=== PATIENT | female | born 1960 | race African-American/Black ===

== ENCOUNTER 2017-05-15 21:31 | Emergency (ER) | payer MEDICAID, OTHER ==
[~2017-05-15] VITALS: Ht 167.6 cm; Wt 65.9 kg
[~2017-05-15 21:31] MED LIST: ALPR1TAB2 PO; AZIT250T6 PO; CARI350T PO; CLON0.1T PO; DIPH25CA83 PO; HYDR-523 PO; NORT50CA PO; OMEP40CA PO
[2017-05-16 01:55] VITALS: BP 142/77
== END 2017-05-16 02:21 | disposition home or self-care (01) ==
LOC: ER 22:31
DX: T42.4X5A Adverse effect of benzodiazepines, initial encounter (principal); F41.9 Anxiety disorder, unspecified; I10 Essential (primary) hypertension; F31.9 Bipolar disorder, unspecified; Y92.89 Other specified places as the place of occurrence of the external cause; F12.10 Cannabis abuse, uncomplicated; Z98.890 Other specified postprocedural states
CPT/HCPCS: 93005; 99283; Z7610

== ENCOUNTER 2017-06-21 21:19 | Emergency (ER) | payer MEDICAID ==
[~2017-06-21] VITALS: Ht 172.7 cm; Wt 60.0 kg
[2017-06-22 01:01] LABS: BASOPHILS % 0.6 % (0.0-2.0); EOSINOPHILS % 3.3 % (0.0-5.0); HEMATOCRIT. 40.8 % (36.0-48.0); LYMPHOCYTES % 44.9 % (20.0-50.0); MEAN CORPUSCULAR HEMOGLOBIN 31.7 pg (28.0-32.0); MEAN CORPUSCULAR VOLUME 92.5 fL (81.0-99.0); MEAN PLATELET VOLUME 8.1 fl (7.4-10.4); MONOCYTES % 7.4 % (2.0-8.0); NEUTROPHILS % 43.8 % (40.0-76.0); PLATELET 187 x1000/uL (130-400); RED BLOOD CELL COUNT 4.41 mill/uL (4.2-5.4); RED CELL DISTRIBUTION WIDTH 13.8 % (11.6-14.6)
[2017-06-22 01:07] LABS: CHLORIDE 105 mEq/L (98-107)
[2017-06-22 01:11] VITALS: BP 156/103
[2017-06-22 01:15] LABS: CARBON DIOXIDE 32 mEq/L (21-32); ETHANOL BLOOD < 10 mg/dL
[2017-06-22 01:23] LABS: CLARITY URINE CLOUDY (CLEAR); COLOR URINE YELLOW (YELLOW); GLUCOSE URINE NEGATIVE (NEGATIVE); KETONES URINE NEGATIVE (NEGATIVE); LEUKOCYTE ESTERASE URINE 1+ (NEGATIVE); NITRITE URINE NEGATIVE (NEGATIVE); OCCULT BLOOD URINE NEGATIVE (NEGATIVE); PH URINE 5.5 (4.5-8.0); PROTEIN URINE NEGATIVE (NEGATIVE); SPECIFIC GRAVITY URINE 1.026 (1.005-1.030); UROBILINOGEN URINE 0.2 E.U./dL (0.2-1.0)
[2017-06-22 01:51] LABS: *AMPHETAMINES SCREEN URINE NEGATIVE (NEGATIVE); *BARBITURATES SCREEN URINE NEGATIVE (NEGATIVE); *BENZODIAZEPINES SCREEN URINE NEGATIVE (NEGATIVE); *COCAINE SCREEN URINE NEGATIVE (NEGATIVE); CANNABINOID URINE SCREEN PRESUMTIVE POSITIVE (NEGATIVE); METHADONE URINE SCREEN NEGATIVE (NEGATIVE); OPIATES URINE SCREEN PRESUMTIVE POSITIVE (NEGATIVE); PHENCYCLIDINE URINE SCREEN NEGATIVE (NEGATIVE)
== END 2017-06-22 02:51 | disposition home or self-care (01) ==
LOC: ER 06-22 00:20
DX: F41.9 Anxiety disorder, unspecified (principal); N39.0 Urinary tract infection, site not specified; F12.10 Cannabis abuse, uncomplicated; R00.2 Palpitations; I11.9 Hypertensive heart disease without heart failure
CPT/HCPCS: 36415; 80053; 80305; 81001; 81025; 85025; 93005; 99285; G0482

== ENCOUNTER 2017-10-23 12:28 | Emergency (ER) | payer MEDICAID ==
[~2017-10-23] VITALS: Ht 172.7 cm; Wt 67.0 kg
[~2017-10-23 12:28] MED LIST changes: +AZIT250T12 PO; -AZIT250T6 PO
[2017-10-23 12:56] VITALS: BP 140/91
== END 2017-10-23 20:45 | disposition left against medical advice (07) ==
LOC: ER 13:04
DX: R07.9 Chest pain, unspecified (principal); R06.02 Shortness of breath; Z53.21 Procedure and treatment not carried out due to patient leaving prior to being seen by health care provider
CPT/HCPCS: 93005

== ENCOUNTER 2017-10-30 13:48 | Emergency (ER) | payer MEDICAID ==
[~2017-10-30] VITALS: Ht 162.6 cm; Wt 67.0 kg
[2017-10-30 13:54] VITALS: BP 156/103
== END 2017-10-30 18:58 | disposition left against medical advice (07) ==
LOC: ER 14:09
DX: R07.89 Other chest pain (principal); I10 Essential (primary) hypertension
CPT/HCPCS: 93005; 99283

== ENCOUNTER 2017-11-11 12:51 | Emergency (ER) | payer MEDICAID ==
[~2017-11-11] VITALS: Ht 167.6 cm; Wt 67.0 kg
[2017-11-11] MEDS ORDERED: IBUPROFEN 400MG TABLET PO ONE (15:30)
[2017-11-11 16:00] LABS: BASOPHILS % 0.8 % (0.0-2.0); EOSINOPHILS % 2.1 % (0.0-5.0); HEMATOCRIT. 42.4 % (36.0-48.0); HEMOGLOBIN. 14.3 g/dL (12.0-16.0); MEAN CORPUSCULAR HEMOGLOBIN 31.2 pg (28.0-32.0); MEAN CORPUSCULAR VOLUME 92.3 fL (81.0-99.0); MEAN PLATELET VOLUME 8.5 fl (7.4-10.4); NEUTROPHILS % 40.1 % (40.0-76.0); PLATELET 244 x1000/uL (130-400); RED CELL DISTRIBUTION WIDTH 13.3 % (11.6-14.6)
[2017-11-11 16:01] LABS: INR 1.1; PROTHROMBIN TIME 11.4 sec (9.4-11.6)
[2017-11-11 16:25] LABS: CARBON DIOXIDE 30 mEq/L (21-32); CHLORIDE 106 mEq/L (98-107); CREATINE KINASE 157 IU/L (26-192); TROPONIN I < 0.02 ng/mL (0.00-0.04)
[2017-11-11 17:18] VITALS: BP 134/76
== END 2017-11-11 17:21 | disposition home or self-care (01) ==
LOC: ER 13:49
DX: R07.89 Other chest pain (principal); H92.02 Otalgia, left ear; R05 Cough; J34.89 Other specified disorders of nose and nasal sinuses; F41.9 Anxiety disorder, unspecified; I10 Essential (primary) hypertension; F12.10 Cannabis abuse, uncomplicated
CPT/HCPCS: 36415; 71045; 80053; 82550; 83690; 84484; 85025; 85610; 93005; 99285; Z7610

== ENCOUNTER 2018-06-26 22:28 | Emergency (ER) | payer MEDICAID ==
[~2018-06-26] VITALS: Ht 167.6 cm; Wt 64.0 kg
[~2018-06-26 22:28] MED LIST changes: -CARI350T PO; +S350 PO
[2018-06-27 02:30] LABS: BASOPHILS % 0.6 % (0.0-2.0); EOSINOPHILS % 2.9 % (0.0-5.0); HEMATOCRIT. 46.3 % (36.0-48.0); HEMOGLOBIN. 15.9 g/dL (12.0-16.0); LYMPHOCYTES % 46.8 % (20.0-50.0); MEAN CORPUSCULAR VOLUME 92.8 fL (81.0-99.0); MEAN PLATELET VOLUME 10.2 fl (7.4-10.4); MONOCYTES % 5.8 % (2.0-8.0); NEUTROPHILS % 43.9 % (40.0-76.0); PLATELET 221 x1000/uL (130-400); RED BLOOD CELL COUNT 4.98 mill/uL (4.2-5.4); RED CELL DISTRIBUTION WIDTH 13.8 % (11.6-14.6)
[2018-06-27 02:34] LABS: CHLORIDE 103 mEq/L (98-107)
[2018-06-27] MEDS ORDERED: KETOROLAC 15MG/ML VIAL IV ONE (03:45)
[2018-06-27 04:11] LABS: CLARITY URINE CLOUDY (CLEAR); COLOR URINE YELLOW (YELLOW); KETONES URINE NEGATIVE (NEGATIVE); LEUKOCYTE ESTERASE URINE 3+ (NEGATIVE); NITRITE URINE NEGATIVE (NEGATIVE); OCCULT BLOOD URINE NEGATIVE (NEGATIVE); PROTEIN URINE NEGATIVE (NEGATIVE); SPECIFIC GRAVITY URINE 1.017 (1.005-1.030)
[2018-06-27 05:27] VITALS: BP 100/51
== END 2018-06-27 05:28 | disposition home or self-care (01) ==
LOC: ER 22:28
DX: R51 Headache (principal); M79.1 Myalgia; D72.829 Elevated white blood cell count, unspecified; F41.9 Anxiety disorder, unspecified; I10 Essential (primary) hypertension
CPT/HCPCS: 36415; 80053; 81003; 85025; 87077; 87086; 87186; 96374; 99284; J1885

== ENCOUNTER 2018-07-17 21:32 | Emergency (ER) | payer MEDICAID ==
[~2018-07-17] VITALS: Ht 167.6 cm; Wt 65.0 kg
[2018-07-17 21:39] VITALS: BP 159/94
== END 2018-07-18 06:05 | disposition left against medical advice (07) ==
LOC: ER 21:32
DX: Z53.21 Procedure and treatment not carried out due to patient leaving prior to being seen by health care provider (principal)
CPT/HCPCS: 93005; Z7610; A4315

== ENCOUNTER 2022-05-27 12:17 | Emergency (ER) | payer MEDICAID ==
[~2022-05-27] VITALS: Ht 167.6 cm; Wt 58.0 kg
[~2022-05-27 12:17] MED LIST changes: +CARI350T28 PO; -S350 PO
[2022-05-27] MEDS ORDERED: DEXAMETHASONE 10 MG/ML VIAL IM ONE (14:45)
[2022-05-27 16:21] VITALS: BP 126/89
== END 2022-05-27 16:23 | disposition home or self-care (01) ==
LOC: ER 12:20
DX: J02.9 Acute pharyngitis, unspecified (principal); I10 Essential (primary) hypertension; Z20.822 Contact with and (suspected) exposure to COVID-19
CPT/HCPCS: 87070; 87426; 87430; 96372; 99283; C9803; J1100

== ENCOUNTER 2022-06-10 14:42 | Emergency (ER) | payer MEDICAID ==
[~2022-06-10] VITALS: Ht 170.2 cm; Wt 64.0 kg
[2022-06-10 14:55] VITALS: BP 141/98
[2022-06-10] MEDS ORDERED: DICYCLOMINE 10 MG/5 ML ORAL SYR PO STA (15:34)
[2022-06-10] MEDS ORDERED: MAGNESIUM/ALUMINUM HYDROXIDE/SIMETHICONE 30ML UDC PO STA (15:34)
[2022-06-10] MEDS ORDERED: VISCOUS LIDOCAINE 2% 15 ML UDC PO STA (15:34)
[2022-06-10 17:55] LABS: BASOPHILS % 0.7 % (0.0-2.0); EOSINOPHILS % 3.2 % (0.0-5.0); HEMATOCRIT. 44.1 % (36.0-48.0); HEMOGLOBIN. 14.8 g/dL (12.0-16.0); LYMPHOCYTES % 45.2 % (20.0-50.0); MEAN CORPUSCULAR HEMOGLOBIN 30.9 pg (28.0-32.0); MEAN CORPUSCULAR VOLUME 91.8 fL (81.0-99.0); MEAN PLATELET VOLUME 9.7 fl (7.4-10.4); MONOCYTES % 8.1 % (2.0-8.0); NEUTROPHILS % 42.8 % (40.0-76.0); PLATELET 173 x1000/uL (130-400); RED CELL DISTRIBUTION WIDTH 13.5 % (11.6-14.6)
[2022-06-10 18:03] LABS: CHLORIDE 108 mEq/L (98-107)
[2022-06-10 18:04] LABS: INR 1.1; PROTHROMBIN TIME 11.3 sec (9.6-11.0)
[2022-06-10 18:24] LABS: CLARITY URINE CLOUDY (CLEAR); COLOR URINE YELLOW (YELLOW); KETONES URINE NEGATIVE (NEGATIVE); LEUKOCYTE ESTERASE URINE 1+ (NEGATIVE); NITRITE URINE NEGATIVE (NEGATIVE); OCCULT BLOOD URINE NEGATIVE (NEGATIVE); PH URINE 6.5 (4.5-8.0); PROTEIN URINE NEGATIVE (NEGATIVE); SPECIFIC GRAVITY URINE 1.016 (1.005-1.030)
[2022-06-10] MEDS ORDERED: FAMO-135 PO (19:38)
[2022-06-10] MEDS ORDERED: CEPH500T MT (19:38)
== END 2022-06-10 20:03 | disposition home or self-care (01) ==
LOC: ER 14:52
DX: N39.0 Urinary tract infection, site not specified (principal); N20.0 Calculus of kidney; K76.89 Other specified diseases of liver; R07.89 Other chest pain; R07.0 Pain in throat; I10 Essential (primary) hypertension; E03.9 Hypothyroidism, unspecified; Z79.899 Other long term (current) drug therapy; Z87.828 Personal history of other (healed) physical injury and trauma; Z98.890 Other specified postprocedural states
CPT/HCPCS: 36415; 71045; 74176; 80053; 81003; 84484; 85025; 93005; 99285

== ENCOUNTER 2023-09-28 06:22 | Emergency (ER) | payer MEDICAID, OTHER ==
[~2023-09-28] VITALS: Ht 167.6 cm; Wt 66.0 kg
[~2023-09-28 06:22] MED LIST changes: +CEPH500T MT; +FAMO-135 PO
[2023-09-28 06:39] VITALS: O2SAT 99
[2023-09-28 07:34] LABS: ALANINE AMINOTRANSFERASE 22 IU/L (10-49); ALBUMIN 4.2 g/dL (3.2-4.8); ASPARTATE AMINOTRANSFERASE 27 IU/L (<34); BASOPHILS % 0.4 % (0.0-2.0); BILIRUBIN TOTAL 0.8 mg/dL (0.1-1.0); CALCIUM 10.6 mg/dL (8.7-10.4); CARBON DIOXIDE 31 mEq/L (21-32); CHLORIDE 106 mEq/L (98-107); CREATININE 0.7 mg/dL (0.6-1.0); DIFFERENTIAL COMMENT 0; EOSINOPHILS % 2.6 % (0.0-5.0); GLUCOSE 83 mg/dL (70-105); HEMATOCRIT. 44.9 % (36.0-48.0); HEMOGLOBIN. 15.4 g/dL (12.0-16.0); LYMPHOCYTES % 34.6 % (20.0-50.0); MEAN CORPUSCULAR HEMOGLOBIN 31.7 pg (28.0-32.0); MEAN CORPUSCULAR HGB CONC 34.3 g/dL (31.0-37.0); MEAN CORPUSCULAR VOLUME 92.3 fL (81.0-99.0); MEAN PLATELET VOLUME 9.8 fl (7.4-10.4); MONOCYTES % 8.4 % (2.0-8.0); PLATELET 189 x1000/uL (130-400); POTASSIUM 3.7 mEq/L (3.5-5.1); PROTEIN TOTAL 7.1 g/dL (6.0-8.3); RED BLOOD CELL COUNT 4.86 mill/uL (4.2-5.4); RED CELL DISTRIBUTION WIDTH 13.7 % (11.6-14.6); SODIUM 141 mEq/L (136-145); TROPONIN I HIGH SENSITIVITY 6 ng/L (3.0-34); UREA NITROGEN BLOOD 11 mg/dL (9-23); WHITE BLOOD COUNT 3.8 x1000/uL (4.5-11.0)
[2023-09-28 07:47] LABS: CLARITY URINE CLEAR (CLEAR); COLOR URINE YELLOW (YELLOW); GLUCOSE URINE NEGATIVE (NEGATIVE); PROTEIN URINE NEGATIVE (NEGATIVE)
[2023-09-28 07:48] LABS: KETONES URINE NEGATIVE (NEGATIVE); LEUKOCYTE ESTERASE URINE NEGATIVE (NEGATIVE); NITRITE URINE NEGATIVE (NEGATIVE); OCCULT BLOOD URINE NEGATIVE (NEGATIVE); UROBILINOGEN URINE 0.2 E.U./dL (0.2-1.0)
[2023-09-28 08:16] LABS: PARTIAL THROMBOPLASTIN TIME 34.2 sec (23.4-31.0)
[2023-09-28] MEDS ORDERED: LABETALOL HCL VIAL 20 MG/4 ML VIAL IV ONE (10:45)
[2023-09-28] MEDS ORDERED: LIDOCAINE 5% PATCH TOP SCH (10:45)
[2023-09-28] MEDS ORDERED: LABETALOL 5MG/ML SYR 20 MG/4 ML SYRINGE IV NR (11:00)
[2023-09-28 11:46] LABS: TROPONIN I HIGH SENSITIVITY 8 ng/L (3.0-34)
[2023-09-28] MEDS ORDERED: BENZ1LOZ73 MT (16:30)
[2023-09-28] MEDS ORDERED: DEXAMETHASONE 4MG/ML 1ML VIAL IV ONE (17:00)
[2023-09-28 17:07] VITALS: BP 148/86; PULSE 88; RESP 16; TEMP 98.6
[2023-09-28 17:14] LABS: TROPONIN I HIGH SENSITIVITY 9 ng/L (3.0-34)
== END 2023-09-28 17:09 | disposition still patient (30) ==
LOC: ER 06:22
DX: M54.2 Cervicalgia (principal); R07.89 Other chest pain; I10 Essential (primary) hypertension; Z98.890 Other specified postprocedural states
CPT/HCPCS: 80053; 81003; 84443; 85025; 85610; 85730; 84484; 36415; 71045; 70491; 93005; 96374; 96375; 99285; J1100; J3490; Z7610 ×3

== ENCOUNTER 2025-03-27 09:29 | Emergency (ER) | payer OTHER ==
[~2025-03-27] VITALS: Ht 172.7 cm; Wt 68.0 kg
[~2025-03-27 09:29] MED LIST changes: +BENZ1LOZ73 MT; +CARI-518 PO; -CARI350T28 PO
[2025-03-27 09:31] VITALS: O2SAT 99
[2025-03-27 10:11] LABS: BASOPHILS % 0.3 % (0.0-2.0); EOSINOPHILS % 0.1 % (0.0-5.0); HEMATOCRIT. 48.9 % (36.0-48.0); HEMOGLOBIN. 16.9 g/dL (12.0-16.0); LYMPHOCYTES % 10.5 % (20.0-50.0); MEAN CORPUSCULAR HEMOGLOBIN 31.7 pg (28.0-32.0); MEAN CORPUSCULAR HGB CONC 34.6 g/dL (31.0-37.0); MEAN CORPUSCULAR VOLUME 91.5 fL (81.0-99.0); MEAN PLATELET VOLUME 9.9 fl (7.4-10.4); MONOCYTES % 2.1 % (2.0-8.0); PLATELET 187 x1000/uL (130-400); RED BLOOD CELL COUNT 5.34 mill/uL (4.2-5.4); RED CELL DISTRIBUTION WIDTH 13.6 % (11.6-14.6); WHITE BLOOD COUNT 4.7 x1000/uL (4.5-11.0)
[2025-03-27 10:22] LABS: CHLORIDE 98 mEq/L (98-107); SODIUM 135 mEq/L (136-145)
[2025-03-27 10:23] LABS: CARBON DIOXIDE 27 mEq/L (21-32)
[2025-03-27 10:24] LABS: CALCIUM 11.1 mg/dL (8.7-10.4)
[2025-03-27 10:28] LABS: CREATININE 0.8 mg/dL (0.6-1.0); GLUCOSE 190 mg/dL (70-105)
[2025-03-27 10:29] LABS: UREA NITROGEN BLOOD 9 mg/dL (9-23)
[2025-03-27 10:36] LABS: POTASSIUM 2.8 mEq/L (3.5-5.1)
[2025-03-27] MEDS: MORPHINE SULFATE 2 MG/ML INJ (NOT FOR IM USE) IV ONE (10:45)
[2025-03-27] MEDS: ONDANSETRON HCL 4MG/2ML INJ IV ONE (10:45)
[2025-03-27] MEDS: PANTOPRAZOLE SODIUM 40 MG/VIAL IV ONE (10:45)
[2025-03-27] MEDS: SODIUM CHLORIDE 0.9% 1,000 ML IV ONE (11:04)
[2025-03-27] MEDS: ACETAMINOPHEN 325MG TABLET PO ONE (12:22)
[2025-03-27] MEDS: KCL 20MEQ/100ML PREMIX 100 ML IV SCH (14:00)
[2025-03-27] MEDS: MORPHINE SULFATE 4 MG/ML INJ (FOR IV/IM USE) IV ONE (14:56)
[2025-03-27 16:06] VITALS: BP 159/109; PULSE 99; RESP 24; TEMP 36.8; O2SAT 99
== END 2025-03-27 16:25 | disposition short-term general hospital (02) ==
LOC: ER 09:29 → CANBEDREQ 14:16 → ER 16:25
DX: R10.9 Unspecified abdominal pain (principal); R11.0 Nausea; F12.10 Cannabis abuse, uncomplicated; I10 Essential (primary) hypertension; Z79.899 Other long term (current) drug therapy; Z98.890 Other specified postprocedural states; Z90.710 Acquired absence of both cervix and uterus
CPT/HCPCS: 80048; 82270; 82962; 83690; 85025; 86850; 86900; 86901; 36415; 74176; 96367; 96365; 96375; 96376; 99285; J2405; J2470; J3480; J2270 ×2; J7030; Z7610 ×2